=== PATIENT | male | born 1940 | race African-American/Black ===

== ENCOUNTER 2018-09-15 22:02 | Inpatient (IN) | payer OTHER ==
[~2018-09-15] VITALS: Ht 180.3 cm; Wt 65.8 kg
[~2018-09-15 22:02] MED LIST: CIPRO500 MG PO; CLARITIN10 MG; FLAGYL500MG PO; INTEGRA F CAPS1 EACH PO; PROTONIX20 MG; PROTONIX20 MG PO; SYNTHROID150 MCG; Synthroid 150MCG TABLET PO; VITAMIN B-121000 MC2 SL
[2018-09-17] MEDS ORDERED: SYNTHROID150 MCG PO (16:30)
[2018-09-21] MEDS ORDERED: DELZICOL400 M1 PO (09:53)
[2018-09-21] MEDS ORDERED: PREDNISONE20 MG PO (09:54)
[2018-09-21] MEDS ORDERED: PREDNISONE10 MG PO (09:54)
== END 2018-09-21 11:20 | disposition home or self-care (01) | DRG 386 ==
LOC: ER 22:02 → MEDI 09-16 16:05
PROVIDERS: ADMIT Internal Medicine
DX: K51.50 Left sided colitis without complications (principal); K62.5 Hemorrhage of anus and rectum; D62 Acute posthemorrhagic anemia; E03.8 Other specified hypothyroidism; K64.0 First degree hemorrhoids; K21.9 Gastro-esophageal reflux disease without esophagitis; K51.80 Other ulcerative colitis without complications; E86.0 Dehydration; E87.8 Other disorders of electrolyte and fluid balance, not elsewhere classified

== ENCOUNTER 2018-09-27 10:30 | Emergency (ER) | payer OTHER ==
[~2018-09-27] VITALS: Ht 180.3 cm; Wt 64.4 kg
[~2018-09-27 10:30] MED LIST changes: +DELZICOL400 M1 PO; +PREDNISONE10 MG PO; +PREDNISONE20 MG PO; +SYNTHROID150 MCG PO
[2018-09-27] MEDS ORDERED: SYNTHROID137 MCG PO (11:06)
== END 2018-09-27 17:06 | disposition home or self-care (01) ==
LOC: ER 10:30
DX: K62.5 Hemorrhage of anus and rectum (principal)

== ENCOUNTER 2024-07-20 08:32 | Emergency (ER) | payer OTHER ==
[~2024-07-20] VITALS: Ht 180.3 cm; Wt 64.0 kg
[~2024-07-20 08:32] MED LIST changes: +SYNTHROID137 MCG PO
[2024-07-20] MEDS ORDERED: SIMVASTATIN20 MG PO (08:46)
[2024-07-20] MEDS ORDERED: EZETIMIBE10 MG PO (08:46)
[2024-07-20] MEDS ORDERED: 0.9 % SODIUM CHLORIDE 1,000 ML IV ONE (09:15)
[2024-07-20] MEDS ORDERED: CIPROFLOXACIN IN 5 % DEXTROSE 400 MG/200 ML PIGGYBAG IV ONE ×2 (09:15→09:23)
[2024-07-20] MEDS ORDERED: CHOLESTYRAMINE/ASPARTAME LIGHT 4 G/PKT PACKET PO ONE (09:15)
[2024-07-20] MEDS ORDERED: METRONIDAZOLE/SODIUM CHLORIDE 500 MG/100 ML PIGGYBACK IV ONE ×2 (09:15→09:24)
[2024-07-20] MEDS ORDERED: PANTOPRAZOLE SODIUM 40 MG/VIAL VIAL IV ONE (09:15)
[2024-07-20 09:57] LABS: HEMATOCRIT 37.9 % (39.0-48.0); HEMOGLOBIN 12.7 g/dL (13-16.00); MEAN CELL VOLUME 95.9 fL (80.0-100.00); MEAN CORPUSCULAR HEMOGLOBIN 32.2 pg (27.00-32.0); MEAN CORPUSCULAR HGB CONC 33.6 g/dl (32.0-36.0); PLATELET COUNT 306 K/uL (150-450); RED BLOOD COUNT 3.95 M/uL (4.00-6.00); RED CELL DISTRIBUTION WIDTH 13.5 % (11.5-14.5)
[2024-07-20 10:18] LABS: INR 1.02; PARTIAL THROMBOPLASTIN TIME 25.1 SECONDS (22.0-34.0); PROTHROMBIN TIME 11.1 SECONDS (9.0-11.5)
[2024-07-20 10:19] LABS: ALBUMIN 3.6 gm/dL (3.4-5.0); BILIRUBIN TOTAL 0.41 mg/dL (0.3-1.2); CALCIUM 9.1 mg/dL (8.5-10.1); CREATININE SERUM 1.06 mg/dL (0.70-1.30); GFR 66.88; GLOBULINA 3.8 G/DL (2.4-3.5); POTASSIUM 4.24 mEq/L (3.5-5.1); TOTAL PROTEIN 7.4 gm/dL (6.4-8.2)
== END 2024-07-20 14:51 | disposition home or self-care (01) ==
LOC: ER 08:35
PROVIDERS: General Practice
DX: K52.89 Other specified noninfective gastroenteritis and colitis (principal); K62.5 Hemorrhage of anus and rectum; R19.7 Diarrhea, unspecified; E03.8 Other specified hypothyroidism; K51.90 Ulcerative colitis, unspecified, without complications
CPT/HCPCS: 36415; 74177; 96365; 96366; 99284; J0744; J3490; J7030; Q9965